=== PATIENT | male | born 1970 | race Asian ===

== ENCOUNTER 2017-12-23 20:47 | Emergency (ER) | payer MEDICAID | END 2017-12-23 22:21 | disposition left against medical advice (07) | LOC: ED 20:47 | DX: Z53.21 Procedure and treatment not carried out due to patient leaving prior to being seen by health care provider (principal) ==

== ENCOUNTER 2017-12-24 11:23 | Emergency (ER) | payer MEDICAID ==
[~2017-12-24] VITALS: Ht 170.2 cm; Wt 103.9 kg
[2017-12-24 11:44] VITALS: Ht 170.2 cm; Wt 103.9 kg
[2017-12-24 13:08] LABS: BASOPHIL % 0.6 % (0-2); PLATELET COUNT 232 x10^3mcL (130-400); RED CELL DISTRIBUTION WIDTH 13.5 % (11.5-14.5)
[2017-12-24 13:18] LABS: CALCIUM 8.4 mg/dL (8.5-10.1); CARBON DIOXIDE 27.6 mmol/L (21-32); CHLORIDE SERUM 104 mmol/L (98-107); GFR1 > 60 mL/min; GLUCOSE SERUM 110 mg/dL (74-106); POTASSIUM SERUM 3.4 mmol/L (3.5-5.1); SODIUM SERUM 138 mmol/L (136-145)
[2017-12-24 14:15] VITALS: BP 137/84
== END 2017-12-24 14:15 | disposition home or self-care (01) ==
LOC: ED 11:23
PROVIDERS: Emergency Medicine
DX: M54.9 Dorsalgia, unspecified (principal); R10.9 Unspecified abdominal pain; R31.9 Hematuria, unspecified; F17.210 Nicotine dependence, cigarettes, uncomplicated; Z71.6 Tobacco abuse counseling; R11.0 Nausea; Z87.442 Personal history of urinary calculi
CPT/HCPCS: 99406; J1885; J3010; J7030